=== PATIENT | female | born 1985 | race African-American/Black ===

== ENCOUNTER 2016-11-25 16:20 | Emergency (ER) | payer MEDICAID ==
[~2016-11-25] VITALS: Ht 157.5 cm; Wt 56.1 kg
[~2016-11-25 16:20] MED LIST: ANTI-INFLAMMATORY PO; ANTIBIOTIC PO
[2016-11-25] MEDS ORDERED: KETOROLAC 30 MG/1 ML IM ONE (17:30)
[2016-11-25] MEDS ORDERED: KETOROLAC 30 MG/1 ML ONE (17:41)
[2016-11-25 18:08] LABS: BLOOD UREA NITROGEN 6 mg/dL (7-18)
[2016-11-25 18:18] LABS: HEMOGLOBIN 11.8 g/dL (11.7-16.4)
[2016-11-25] MEDS ORDERED: OMNIPAQUE 350 MG/ML, 100ML BOTTLE ONE (18:26)
[2016-11-25] MEDS ORDERED: KETOROLAC 30 MG/1 ML IVPush ONE (18:30)
[2016-11-25] MEDS ORDERED: OXYcodone/APAP 5/325MG TABLET ONE (19:25)
[2016-11-25] MEDS ORDERED: OXYcodone/APAP 5/325MG TABLET PO ONE (19:30)
[2016-11-25 20:00] VITALS: BP 127/84
== END 2016-11-25 20:01 | disposition home or self-care (01) ==
LOC: ED 20:00
DX: R05 Cough (principal); R07.89 Other chest pain; D86.9 Sarcoidosis, unspecified; R59.0 Localized enlarged lymph nodes; D84.9 Immunodeficiency, unspecified
CPT/HCPCS: 36415; 71020; 71275; 80048; 85025; 96374; 99285; J1885; Q9967

== ENCOUNTER 2016-12-09 19:02 | Emergency (ER) | payer MEDICAID ==
[~2016-12-09] VITALS: Ht 157.5 cm; Wt 57.6 kg
[2016-12-09 19:06] VITALS: BP 119/86
[2016-12-09] MEDS ORDERED: HYDROmorphone 1 MG/ML, 1ML ONE (19:45)
[2016-12-09] MEDS ORDERED: HYDROmorphone 1 MG/ML, 1ML IM ONE (20:00)
== END 2016-12-09 20:33 | disposition home or self-care (01) ==
LOC: ED 20:29
DX: R07.89 Other chest pain (principal); D86.9 Sarcoidosis, unspecified; J45.909 Unspecified asthma, uncomplicated
CPT/HCPCS: 93005; 99283

== ENCOUNTER 2017-06-21 11:38 | Emergency (ER) | payer MEDICAID ==
[~2017-06-21] VITALS: Ht 157.5 cm; Wt 61.7 kg
[2017-06-21] MEDS ORDERED: ONDANSETRON 2MG/ML, 2ML ONE (12:12)
[2017-06-21] MEDS ORDERED: FAMOTIDINE 20 MG/2 ML ONE (12:12)
[2017-06-21] MEDS ORDERED: MORPHINE SULFATE 4 MG/ML, 1ML ONE ×2 (12:12→13:24)
[2017-06-21] MEDS: MORPHINE SULFATE 4 MG/ML, 1ML IVPush PRN ×2 (12:14→13:26)
[2017-06-21] MEDS ORDERED: ONDANSETRON 2MG/ML, 2ML IVPush ONE (12:30)
[2017-06-21] MEDS ORDERED: FAMOTIDINE 20 MG/2 ML IVP ONE (12:30)
[2017-06-21] MEDS ORDERED: SODIUM CHLORIDE 0.9% 1,000ML IVBOLUS ONE (12:30)
[2017-06-21 12:52] LABS: HEMATOCRIT 44.8 % (34.6-47.8); HEMOGLOBIN 14.7 g/dL (11.7-16.4); WHITE BLOOD COUNT 4.7 x10^3/uL (3.4-10)
[2017-06-21 12:56] LABS: ASPARTATE AMINO TRANSFERASE 23 U/L (15-37); BLOOD UREA NITROGEN 11 mg/dL (7-18)
[2017-06-21] MEDS ORDERED: METH4TAB7 PO (13:21)
[2017-06-21] MEDS ORDERED: SODIUM CHLORIDE FLUSH 10ML SYR IVF ONE (13:30)
[2017-06-21 13:39] VITALS: BP 132/80
== END 2017-06-21 14:44 | disposition home or self-care (01) ==
LOC: ED 12:50
DX: K25.3 Acute gastric ulcer without hemorrhage or perforation (principal); R11.10 Vomiting, unspecified; J45.909 Unspecified asthma, uncomplicated
CPT/HCPCS: 36415; 74022; 80053; 81001; 83690; 84484; 84703; 85025; 86677; 87086; 93005; 96361; 96374; 96375; 96376; 99285; J2405; J7030; S0028

== ENCOUNTER 2017-07-07 18:45 | Emergency (ER) | payer MEDICAID ==
[~2017-07-07] VITALS: Ht 157.5 cm; Wt 59.0 kg
[~2017-07-07 18:45] MED LIST changes: +METH4TAB7 PO
[2017-07-07] MEDS ORDERED: SODIUM CHLORIDE FLUSH 10ML SYR IVF ONE (19:00)
[2017-07-07] MEDS ORDERED: ONDANSETRON 2MG/ML, 2ML IVPush ONE (19:00)
[2017-07-07] MEDS ORDERED: SODIUM CHLORIDE 0.9% 1,000ML IVBOLUS ONE (19:00)
[2017-07-07 19:13] LABS: HEMATOCRIT 41.7 % (34.6-47.8); HEMOGLOBIN 13.9 g/dL (11.7-16.4); WHITE BLOOD COUNT 5.5 x10^3/uL (3.4-10)
[2017-07-07 19:24] LABS: BLOOD UREA NITROGEN 12 mg/dL (7-18)
[2017-07-07 19:30] LABS: ASPARTATE AMINO TRANSFERASE 23 U/L (15-37)
[2017-07-07] MEDS ORDERED: ONDANSETRON 2MG/ML, 2ML ONE ×2 (19:36→19:44)
[2017-07-07 20:01] VITALS: BP 122/98
[2017-07-07] MEDS ORDERED: ESOM20CA PO (20:04)
[2017-07-07] MEDS ORDERED: TRAM50TA2 PO (20:04)
[2017-07-07] MEDS ORDERED: METOCLOPRAMIDE 5 MG/ML, 2ML ONE (20:08)
[2017-07-07] MEDS ORDERED: METOCLOPRAMIDE 5 MG/ML, 2ML IVPush ONE (20:30)
== END 2017-07-07 20:52 | disposition left against medical advice (07) ==
LOC: ED 20:46
DX: R10.84 Generalized abdominal pain (principal); J45.909 Unspecified asthma, uncomplicated; R11.2 Nausea with vomiting, unspecified; H53.8 Other visual disturbances
CPT/HCPCS: 36415; 80053; 84703; 85025; 93005; 96361; 96374; 96375; 99285; J2405; J2765; J7030

== ENCOUNTER 2018-01-02 20:54 | Emergency (ER) | payer MEDICAID ==
[~2018-01-02] VITALS: Ht 157.5 cm; Wt 55.0 kg
[~2018-01-02 20:54] MED LIST changes: +ESOM20CA PO; +TRAM50TA2 PO
[2018-01-02 23:32] VITALS: BP 128/88
== END 2018-01-03 00:48 | disposition home or self-care (01) ==
LOC: ED 21:30
DX: F33.1 Major depressive disorder, recurrent, moderate (principal); J45.909 Unspecified asthma, uncomplicated
CPT/HCPCS: 99284

== ENCOUNTER 2018-07-08 18:24 | Emergency (ER) | payer MEDICAID ==
[~2018-07-08] VITALS: Ht 157.5 cm; Wt 56.7 kg
[2018-07-08] MEDS ORDERED: ASPIRIN 81 MG TABLET CHEW PO ONE (18:30)
[2018-07-08 18:50] LABS: MEAN CORPUSCULAR HEMOGLOBIN 30.9 pg (27.0-34.8); MEAN CORPUSCULAR HGB CONC 33.2 g/dL (32.4-35.8); MEAN CORPUSCULAR VOLUME 93.1 fL (80-100); MEAN PLATELET VOLUME 9.1 fL (7.4-10.4); PLATELET COUNT 264 x10^3/uL (130-400); RED BLOOD COUNT 4.17 x10^6/uL (3.82-5.3); RED CELL DISTRIBUTION WIDTH 14.2 % (9.6-15.2)
[2018-07-08 19:00] VITALS: BP 124/76
[2018-07-08 19:02] LABS: ANION GAP 7 mmol/L (5-15); CALCIUM 8.8 mg/dL (8.5-10.1); CHLORIDE 105 mmol/L (98-107)
[2018-07-08] MEDS ORDERED: ASPIRIN 81 MG TABLET CHEW ONE (19:02)
[2018-07-08 19:05] LABS: TROPONIN I < 0.015 ng/mL (0.000-0.045)
[2018-07-08 19:27] LABS: BASOPHILS # (AUTO) 0.04 x10^3/uL (0-0.1); BASOPHILS % (AUTO) 1 % (0-1); EOSINOPHILS # (AUTO) 0.13 x10^3/uL (0-0.4); EOSINOPHILS % (AUTO) 3 % (1-7); LYMPHOCYTES # (AUTO) 1.34 x10^3/uL (1-3.4); LYMPHOCYTES % (AUTO) 26 % (22-44); MD SCAN; MONOCYTES # (AUTO) 0.57 x10^3/uL (0.2-0.8); MONOCYTES % (AUTO) 11 % (2-9); NEUTROPHILS # (AUTO) 3.15 x10^3/uL (1.8-6.8); NEUTROPHILS % (AUTO) 60 % (42-75)
== END 2018-07-08 19:42 | disposition home or self-care (01) ==
LOC: ED 19:35
DX: R07.89 Other chest pain (principal); D86.0 Sarcoidosis of lung; J45.909 Unspecified asthma, uncomplicated; Z88.6 Allergy status to analgesic agent
CPT/HCPCS: 36415; 71046; 80048; 82040; 84484; 85025; 93005; 99285

== ENCOUNTER 2018-08-03 16:06 | Emergency (ER) | payer MEDICAID ==
[~2018-08-03] VITALS: Ht 157.5 cm; Wt 54.0 kg
[2018-08-03 16:12] VITALS: BP 106/73
== END 2018-08-03 16:48 | disposition home or self-care (01) ==
LOC: ED 16:42
DX: J09.X2 Influenza due to identified novel influenza A virus with other respiratory manifestations (principal); J45.909 Unspecified asthma, uncomplicated
CPT/HCPCS: 99283

== ENCOUNTER 2020-07-14 09:37 | Emergency (ER) | payer MEDICAID ==
[~2020-07-14] VITALS: Ht 157.5 cm; Wt 58.1 kg
[2020-07-14 09:40] VITALS: BP 134/86
--- NOTE | 2020-07-14 09:47 | NUR ---
EKG IN TRIAGE
--- NOTE | 2020-07-14 10:13 | NUR ---
KNOCKER OFF: PT TO ROOM FROM [facility]
[2020-07-14 10:23] LABS: BASOPHILS % (AUTO) 1 % (0-1); EOSINOPHILS % (AUTO) 2 % (1-7); LYMPHOCYTES % (AUTO) 19 % (22-44); MEAN CORPUSCULAR HGB CONC 32.7 g/dL (32.4-35.8); MEAN PLATELET VOLUME 9.1 fL (7.4-10.4); MONOCYTES % (AUTO) 12 % (2-9); NEUTROPHILS % (AUTO) 66 % (42-75); PLATELET COUNT 306 x10^3/uL (130-400); RED BLOOD COUNT 4.59 x10^6/uL (3.82-5.3); RED CELL DISTRIBUTION WIDTH 14.5 % (9.6-15.2)
[2020-07-14 10:25] LABS: MD NO
[2020-07-14 10:36] LABS: ALBUMIN 4.5 g/dL (3.4-5.0); ANION GAP 6 mmol/L (5-15); CALCIUM 9.3 mg/dL (8.5-10.1); CHLORIDE 106 mmol/L (98-107); CREATININE 0.81 mg/dL (0.55-1.02)
--- NOTE | 2020-07-14 10:38 | NUR ---
ER PROVIDER AT BEDSIDE FOR EVALUATION.
[2020-07-14 10:41] LABS: TROPONIN I < 0.015 ng/mL (0.000-0.045)
--- NOTE | 2020-07-14 10:43 | NUR ---
PATIENT WALKED BACK FROM TRIAGE WITH CHIEF C/O CHEST PAIN AND CHILLS. PATIENT STARTED HAVING CHEST PAIN YESTERDAY AROUND 1600 THAT LASTED A COUPLE MINUTES AND REPEATED 3X WITH SEVERE INTENSITY. PATIENT WAS DIAGNOSED WITH SARCADOSIS A COUPLE YEARS AGO AND SHE HAS INTERMITTENT CHEST PAIN EPISODES, BUT NOT THAT REPEAT MULTIPLE TIMES. PATIENT DENIES SOB, CHEST PAIN DOES NOT RADIATE, NO N/V. PATIENT HAS APPOINTMENT WITH [facility] BUT THEY WILL NOT SEE HER UNTIL SHE IS TESTED FOR COVID PER PATIENT. NO SIGNS OF ACUTE DISTRESS, CONNECTED TO DETASSELER, CALL LIGHT WITHIN REACH.
--- NOTE | 2020-07-14 10:55 | NUR ---
PROVIDER AT BEDSIDE PERFORMING COVID SWAB.
== END 2020-07-14 11:40 | disposition home or self-care (01) ==
LOC: ED 11:01
DX: R07.9 Chest pain, unspecified (principal); D86.9 Sarcoidosis, unspecified; I21.9 Acute myocardial infarction, unspecified; J45.909 Unspecified asthma, uncomplicated
CPT/HCPCS: 36415; 71045; 80048; 82040; 84484; 85025; 87635; 93005; 99285